=== PATIENT | male | born 1975 | race Hispanic/Latino ===

== ENCOUNTER 2020-01-16 05:57 | Emergency (ER) | payer SELFPAY ==
[2020-01-16] MEDS ORDERED: Mag-Al 1200 mg/1200 mg/30 ML UDCUP ONE (06:45)
[2020-01-16] MEDS ORDERED: Lidocaine Viscous Sol 2% 15 ml UD Cup ONE (06:45)
[2020-01-16 07:05] LABS: Bacteria/HPF None Seen HPF (None Seen); Bilirubin Negative (Negative); Blood, Urine Negative (Negative); Clarity Clear (Clear); Glucose, Urine (Dipstick) Normal (Negative); Leukocyte Negative Leu/uL (Negative); Nitrite Negative (Negative); Protein, Urine (Dipstick) 30 mg/dL (Neg-Trace); RBC/HPF 0-3 HPF (0-3); Squamous Epithelial None Seen HPF (0-3); WBC/HPF 0-3 HPF (0-3)
[2020-01-16 07:12] LABS: #Basophils 0.1 thou/uL (0.0-0.2); #Eosinphils 0.2 thou/uL (0.0-0.7); #Lymphocytes 1.2 thou/uL (1.20-3.40); #Monocytes 0.8 thou/uL (0.11-0.59); %Basophils 1.4 % (0.0-1.0); %Lymphocytes 18.8 % (21.0-51.0); %Monocytes 12.3 % (0.0-10.0); %Neutrophils 64.5 % (42.0-75.0); Hemoglobin 15.6 g/dL (14.0-18.0); Mean Corpuscular HGB CONC 34.7 g/dL (32.0-36.0); Mean Corpuscular Hemoglobin 36.8 pg (27.0-31.0); Platelet Count 139 thou/uL (130-400); RBC Distribution Width 11.7 % (11.5-14.5); Red Blood Cell (RBC) Count 4.24 mill/uL (4.70-6.10); White Blood Cell (WBC) Count 6.3 thou/uL (4.8-10.8)
[2020-01-16 07:15] LABS: ALT (SGPT) 58 U/L (8-55); AST (SGOT) 66 U/L (5-34); Alkaline Phosphatase 77 U/L (40-110); Anion Gap 12 mmol/L (10-20); BUN (Urea Nitrogen) 8 mg/dL (8.9-20.6); Bilirubin, Total 0.7 mg/dL (0.2-1.2); Calc. Creatinine Clearance 0 mL/min (70-130); Carbon Dioxide 27 mmol/L (22-29); Chloride 102 mmol/L (98-107); Estimated GFR-MDRD Greater than 90; Globulin 2.9 g/dL (2.4-3.5); Glucose 110 mg/dL (70-105); Lipase 52 U/L (8-78); Potassium 3.9 mmol/L (3.5-5.1); Protein, Total 6.9 g/dL (6.0-8.3); Sodium 137 mmol/L (136-145)
== END 2020-01-16 07:37 | disposition short-term general hospital (02) ==
LOC: ERS 05:57
DX: R10.13 Epigastric pain (principal); F17.210 Nicotine dependence, cigarettes, uncomplicated; R51 Headache
CPT/HCPCS: 80053; 81003; 81015; 83690; 85025; 93005

== ENCOUNTER 2020-05-15 21:00 | Inpatient (IN) | payer SELFPAY ==
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
--- NOTE | 2020-05-15 22:10 | CT ---
CT Cervical Spine WO Con History: Pain Comparison: None. Findings: Occipital condyles are intact. The odontoid process is intact. No acute traumatic facet ankush nt widening. Transverse processes are intact. Spinous processes are intact. Lung apices are clear. Paraspinal soft tissues are unremarkable. Impression: No acute cervical spine fracture or malalignment.
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
[2020-05-15 23:55] LABS: #Basophils 0.1 thou/uL (0.0-0.2); #Lymphocytes 0.8 thou/uL (1.20-3.40); #Monocytes 0.9 thou/uL (0.11-0.59); #Neutrophils 9.6 thou/uL (1.40-6.50); %Basophils 0.6 % (0.0-1.0); %Eosinophils 0.4 % (0.0-10.0); %Lymphocytes 7.3 % (21.0-51.0); %Monocytes 8.2 % (0.0-10.0); %Neutrophils 83.5 % (42.0-75.0); Hemoglobin 13.2 g/dL (14.0-18.0); Mean Corpuscular HGB CONC 34.6 g/dL (32.0-36.0); Mean Corpuscular Hemoglobin 35.2 pg (27.0-31.0); Mean Platelet Volume 8.4 fL (7.4-10.4); Platelet Count 174 thou/uL (130-400); RBC Distribution Width 12.1 % (11.5-14.5); Red Blood Cell (RBC) Count 3.75 mill/uL (4.70-6.10); White Blood Cell (WBC) Count 11.4 thou/uL (4.8-10.8)
[2020-05-16] MEDS ORDERED: Fentanyl 100 MCG/2 ML VIAL ONE (00:14)
[2020-05-16] MEDS ORDERED: Boostrix 0.5 ML VIAL ONE (00:14)
[2020-05-16 00:16] LABS: ALT (SGPT) 358 U/L (8-55); AST (SGOT) 1360 U/L (5-34); Albumin 4.1 g/dL (3.5-5.0); Alkaline Phosphatase 92 U/L (40-110); Anion Gap 18 mmol/L (10-20); BUN (Urea Nitrogen) 5 mg/dL (8.9-20.6); Bilirubin, Total 0.5 mg/dL (0.2-1.2); Calc. Creatinine Clearance 0 mL/min (70-130); Calcium 8.6 mg/dL (7.8-10.44); Carbon Dioxide 20 mmol/L (22-29); Chloride 98 mmol/L (98-107); Estimated GFR-MDRD Greater than 90; Globulin 2.7 g/dL (2.4-3.5); Glucose 112 mg/dL (70-105); Potassium 3.6 mmol/L (3.5-5.1); Protein, Total 6.8 g/dL (6.0-8.3); Sodium 132 mmol/L (136-145)
[2020-05-16 00:25] LABS: Acetaminophen Less than 6.0 mcg/mL (10.0-30.0); Alcohol 223 mg/dL (Less than 10); Salicylate Less than 8.0 mg/dL (15.0-30.0)
[2020-05-16] MEDS ORDERED: Dextrose 50% Abboject 50 ML SYRINGE SLOW IVP PRN (00:59)
[2020-05-16] MEDS ORDERED: Ondansetron PF 4 MG/2 ML Vial IVP PRN (00:59)
[2020-05-16] MEDS ORDERED: Dextrose 5% in Water 1,000 ML IV PRN (00:59)
[2020-05-16] MEDS ORDERED: Ibuprofen 600 MG TAB PO PRN (01:04)
[2020-05-16] MEDS ORDERED: traMADol HCl 50 MG TAB PO PRN (01:04)
[2020-05-16] MEDS ORDERED: Sodium Chloride 0.9% 1,000 ML IV SCH (01:15)
[2020-05-16 01:34] LABS: CK (CPK) 352 U/L (30-200); Magnesium 1.8 mg/dL (1.6-2.6)
[2020-05-16] MEDS: Cyclobenzaprine 10 MG TAB PO PRN ×2 (01:50→12:43)
[2020-05-16 02:13] VITALS: BMI 16.8
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
[2020-05-16] MEDS: Oxazepam 10 MG CAP PO SCH ×3 (05:40→21:02)
[2020-05-16] MEDS: Acetaminophen 325 MG TAB PO SCH ×3 (05:40→17:24)
[2020-05-16] MEDS: Gabapentin 300 MG CAP PO SCH ×3 (05:40→21:02)
[2020-05-16] MEDS: traMADol HCl 50 MG TAB PO SCH ×3 (05:40→17:24)
[2020-05-16] MEDS: Thiamine 100 MG TAB PO SCH (08:15)
[2020-05-16] MEDS: Multivitamin W/ Minerals 1 TAB PO SCH (08:15)
[2020-05-16] MEDS: Folic Acid 1 MG TAB PO SCH (08:15)
[2020-05-16] MEDS: Senokot S 8.6-50 MG TAB PO SCH ×2 (08:16→21:04)
[2020-05-16] MEDS: Polyethylene Glycol 3350 17 GM Packet PO SCH (08:16)
[2020-05-16] MEDS: Famotidine 20 MG TAB PO SCH ×2 (08:16→21:02)
[2020-05-16] MEDS: Ibuprofen 600 MG TAB PO SCH ×2 (08:34→17:24)
[2020-05-16 08:55] LABS: Medtox Reader # READER 4; THC/Cannabinoid Screen Not Detected (NotDetected)
[2020-05-16 08:56] LABS: Amphetamine Not Detected (NotDetected); Barbiturates Screen Not Detected (NotDetected); Benzodiazepine Screen Detected (NotDetected); Cocaine Metabolite Screen Not Detected (NotDetected); Medtox Control Line Valid? VALID (VALID); Methadone Not Detected (NotDetected); Methamphetamine Not Detected (NotDetected); Opiate Screen Not Detected (NotDetected); Oxycodone Screen Not Detected (NotDetected); Phencyclidine (PCP) Not Detected (NotDetected); Tricyclic Screen Detected (NotDetected)
[2020-05-16] MEDS ORDERED: Gabapentin 300 MG CAP PO SCH (09:00)
[2020-05-16] MEDS ORDERED: Famotidine 20 MG TAB PO SCH (09:00)
[2020-05-16] MEDS ORDERED: FLU VACC QS2020-21(6MOS UP)/PF 60 MCG/0.5 ML SYRINGE IM ONE (09:00)
--- NOTE | 2020-05-16 09:11 | PDOC.EVN ---
Event Note - Event Note Event Note: Patient seen and examined. See Kerline Ch STRUCTURED CABLING TECHNICIAN H&P for details. Pain control, incentive spirometry, arrange for OMFS f/u.
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
[2020-05-16] MEDS ORDERED: Iopamidol-370 76% 500 ML 1 ML ONE (13:32)
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
[2020-05-17] MEDS: Acetaminophen 325 MG TAB PO SCH ×3 (00:25→11:33)
[2020-05-17] MEDS: traMADol HCl 50 MG TAB PO SCH ×3 (00:25→11:32)
--- NOTE | 2020-05-17 02:02 | PRG ---
DATE OF SERVICE: 05/16/2020 SUBJECTIVE: Patient was seen during evening rounds, awake, alert, in no distress. Patient's pain is controlled at this time. Patient is able to use his incentive spirometer pulling 2000 mL. Patient voices no complaints. PLAN: Unchanged. Continue current diet. Continue aggressive pulmonary toilet with the use of incentive spirometer every hour while awake. Increased activity. Most likely patient will be discharged home in the morning if his pain is controlled. Job ID: [id number] MTDD
[2020-05-17] MEDS: Ibuprofen 600 MG TAB PO SCH ×2 (03:45→09:45)
[2020-05-17 05:34] LABS: Hemoglobin 12.7 g/dL (14.0-18.0); Mean Corpuscular HGB CONC 33.6 g/dL (32.0-36.0); Mean Corpuscular Hemoglobin 35.4 pg (27.0-31.0); Mean Platelet Volume 8.8 fL (7.4-10.4); Platelet Count 134 thou/uL (130-400); RBC Distribution Width 12.3 % (11.5-14.5); Red Blood Cell (RBC) Count 3.58 mill/uL (4.70-6.10)
[2020-05-17 05:46] LABS: ALT (SGPT) 182 U/L (8-55); AST (SGOT) 270 U/L (5-34); Albumin 3.6 g/dL (3.5-5.0); Alkaline Phosphatase 72 U/L (40-110); Anion Gap 13 mmol/L (10-20); BUN (Urea Nitrogen) 7 mg/dL (8.9-20.6); Bilirubin, Total 0.6 mg/dL (0.2-1.2); Calc. Creatinine Clearance 111 mL/min (70-130); Calcium 8.7 mg/dL (7.8-10.44); Carbon Dioxide 25 mmol/L (22-29); Chloride 103 mmol/L (98-107); Estimated GFR-MDRD Greater than 90; Globulin 2.6 g/dL (2.4-3.5); Glucose 84 mg/dL (70-105); Magnesium 1.9 mg/dL (1.6-2.6); Phosphorus 4.1 mg/dL (2.3-4.7); Potassium 3.9 mmol/L (3.5-5.1); Protein, Total 6.2 g/dL (6.0-8.3); Sodium 137 mmol/L (136-145)
[2020-05-17] MEDS: Gabapentin 300 MG CAP PO SCH (06:01)
[2020-05-17] MEDS: Oxazepam 10 MG CAP PO SCH (06:02)
[2020-05-17] MEDS: Senokot S 8.6-50 MG TAB PO SCH (08:03)
[2020-05-17] MEDS: Famotidine 20 MG TAB PO SCH (08:03)
[2020-05-17] MEDS: Folic Acid 1 MG TAB PO SCH (08:03)
[2020-05-17] MEDS: Multivitamin W/ Minerals 1 TAB PO SCH (08:03)
[2020-05-17] MEDS: Thiamine 100 MG TAB PO SCH (08:03)
[2020-05-17] MEDS: Polyethylene Glycol 3350 17 GM Packet PO SCH (08:03)
--- NOTE | 2020-05-17 08:28 | RAD ---
PORTABLE CHEST: HISTORY: Rib fractures. COMPARISON: CT scan chest 05/16/2020. FINDINGS: Lungs are well aerated and appear clear. No evidence of pneumothorax. No significant effusion. Right side rib fractures are noted as described on yesterday's CT. IMPRESSION: No acute interval change. POS: OFF
[2020-05-17 12:00] VITALS: BP 131/88; TEMP 97.9
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
== END 2020-05-17 15:13 | disposition home or self-care (01) | DRG 86 ==
LOC: ERS 21:00 → SURG A 05-16 01:34
PROVIDERS: ADMIT Surgery; ATTEND Surgery
PROC: 3E0234Z Introduction of Serum, Toxoid and Vaccine into Muscle, Percutaneous Approach (ICD-10-PCS; principal; 2020-05-16)
DX: S02.832A Fracture of medial orbital wall, left side, initial encounter for closed fracture (principal); S22.41XA Multiple fractures of ribs, right side, initial encounter for closed fracture; T79.7XXA Traumatic subcutaneous emphysema, initial encounter; E87.1 Hypo-osmolality and hyponatremia; S27.69XA Other injury of pleura, initial encounter; F10.129 Alcohol abuse with intoxication, unspecified; Y90.7 Blood alcohol level of 200-239 mg/100 ml; Y04.0XXA Assault by unarmed brawl or fight, initial encounter; R74.01 Elevation of levels of liver transaminase levels; Z88.6 Allergy status to analgesic agent; Z23 Encounter for immunization
CPT/HCPCS: 36415; 70450; 70486; 71045; 71250; 71260; 72125; 74177; 80053; 80306; 80307; 82550; 83735; 84100; 85025; 85027; 90471; 90715; 94640; 96374; J3010; J7620; Q9967

== ENCOUNTER 2020-08-05 23:14 | Emergency (ER) | payer SELFPAY ==
[2020-08-05] MEDS ORDERED: Lidocaine 1% w/Epinephrine 1:100K 20 ML VIAL ONE (23:28)
[2020-08-05] MEDS ORDERED: Triple Antibiotic Oint 1 GM Packet ONE ×2 (23:48→23:49)
== END 2020-08-06 00:46 | disposition home or self-care (01) ==
LOC: ERS 23:14
DX: S51.812A Laceration without foreign body of left forearm, initial encounter (principal); F17.210 Nicotine dependence, cigarettes, uncomplicated; Z23 Encounter for immunization; W01.10XA Fall on same level from slipping, tripping and stumbling with subsequent striking against unspecified object, initial encounter
CPT/HCPCS: 12002

== ENCOUNTER 2020-08-26 13:40 | Emergency (ER) | payer SELFPAY | END 2020-08-26 14:19 | disposition home or self-care (01) | LOC: ERS 13:40 | DX: L03.114 Cellulitis of left upper limb (principal); S51.812D Laceration without foreign body of left forearm, subsequent encounter; F17.210 Nicotine dependence, cigarettes, uncomplicated | CPT/HCPCS: 99283 ==

== ENCOUNTER 2021-12-09 01:21 | Emergency (ER) | payer SELFPAY ==
[2021-12-09] MEDS ORDERED: Ibuprofen 800 MG TAB ONE (02:26)
== END 2021-12-09 02:30 | disposition home or self-care (01) ==
LOC: ERS 01:21
DX: J10.1 Influenza due to other identified influenza virus with other respiratory manifestations (principal); F17.210 Nicotine dependence, cigarettes, uncomplicated
CPT/HCPCS: 87804; 99284

== ENCOUNTER 2022-03-06 19:38 | Emergency (ER) | payer SELFPAY ==
[2022-03-06 20:26] LABS: #Basophils 0.1 thou/uL (0.0-0.2); #Eosinphils 0.3 thou/uL (0.0-0.7); #Lymphocytes 1.9 thou/uL (1.20-3.40); #Monocytes 0.6 thou/uL (0.11-0.59); #Neutrophils 2.8 thou/uL (1.40-6.50); %Basophils 1.7 % (0.0-1.0); %Eosinophils 4.9 % (0.0-10.0); %Lymphocytes 34.4 % (21.0-51.0); %Monocytes 9.7 % (0.0-10.0); %Neutrophils 49.3 % (42.0-75.0); Hemoglobin 14.4 g/dL (14.0-18.0); Mean Corpuscular HGB CONC 34.6 g/dL (32.0-36.0); Mean Corpuscular Hemoglobin 36.1 pg (27.0-31.0); Platelet Count 180 thou/uL (130-400); RBC Distribution Width 12.5 % (11.5-14.5); Red Blood Cell (RBC) Count 3.99 mill/uL (4.70-6.10); White Blood Cell (WBC) Count 5.6 thou/uL (4.8-10.8)
[2022-03-06 20:27] LABS: Bilirubin Negative (Negative); Blood, Urine Negative (Negative); Clarity Clear (Clear); Glucose, Urine (Dipstick) Normal (Negative); Ketone, Urine Negative (Negative); Leukocyte Negative Leu/uL (Negative); Nitrite Negative (Negative); Protein, Urine (Dipstick) Negative (Neg-Trace); Specific Gravity, Urine 1.003 (1.002-1.036); Urobilinogen Normal mg/dL (Less than 2); pH, Urine 6.5 (5.0-9.0)
[2022-03-06 20:46] LABS: ALT (SGPT) 34 U/L (8-55); AST (SGOT) 52 U/L (5-34); Albumin 4.5 g/dL (3.5-5.0); Alkaline Phosphatase 67 U/L (40-110); Anion Gap 16 mmol/L (10-20); BUN (Urea Nitrogen) 7 mg/dL (8.9-20.6); Bilirubin, Total 0.3 mg/dL (0.2-1.2); CK (CPK) 125 U/L (30-200); Calc. Creatinine Clearance 0 mL/min (70-130); Calcium 9.5 mg/dL (7.8-10.44); Carbon Dioxide 26 mmol/L (22-29); Chloride 104 mmol/L (98-107); Estimated GFR 115; Globulin 2.9 g/dL (2.4-3.5); Glucose 95 mg/dL (70-105); Potassium 3.9 mmol/L (3.5-5.1); Protein, Total 7.4 g/dL (6.0-8.3); Sodium 142 mmol/L (136-145)
== END 2022-03-06 21:25 | disposition home or self-care (01) ==
LOC: ERS 19:38
DX: N32.89 Other specified disorders of bladder (principal); R31.9 Hematuria, unspecified; F17.210 Nicotine dependence, cigarettes, uncomplicated
CPT/HCPCS: 36415; 74176; 80053; 81003; 82550; 85025

== ENCOUNTER 2024-02-20 23:37 | Emergency (ER) | payer SELFPAY | END 2024-02-21 01:07 | disposition left against medical advice (07) | LOC: ERS 23:37 | DX: Z53.21 Procedure and treatment not carried out due to patient leaving prior to being seen by health care provider (principal) ==